=== PATIENT | male | born 1945 | race American Indian/Alaskan Native ===

== ENCOUNTER 2021-06-08 16:55 | Emergency (ER) | payer SELFPAY ==
--- NOTE | 2021-06-08 17:14 | Event Note ---
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 Further treatment and workup at subsequent clinical providers discretion. Patient/guardian urged not to elope from the ED as their condition may be serious if not clinically assessed and managed. Initial orders include: XR PAIN CONTROL
[2021-06-08 17:38] LABS: Hematocrit 41.5 % (35.5-45.6); Hemoglobin 13.5 gm/dl (11.8-15.2); Mean Corpuscular HGB Conc 33 % (32-34); Mean Corpuscular Volume 75 fl (84-94); Platelet Count 196 K/mm3 (140-440); Red Blood Count 5.53 M/mm3 (3.65-5.03)
[2021-06-08] MEDS ORDERED: ONDANSETRON 4 MG/2 ML INJ IV ONE (17:51)
[2021-06-08] MEDS ORDERED: KETOROLAC 30 MG/1 ML INJ IV ONE (17:51)
[2021-06-08] MEDS ORDERED: fentaNYL 100 MCG/2 ML INJ IV ONE (17:52)
--- NOTE | 2021-06-08 17:57 | Emergency Department Report ---
ED Fall HPI - General Chief Complaint: Chest Pain Stated Complaint: CHEST/ARM PAIN Time Seen by Provider: 06/08/21 17:12 Source: patient Mode of arrival: Ambulatory Limitations: No Limitations - History of Present Illness Initial Comments: 76-year-old male with no significant past medical history presents to the hospital after fall off a 6 foot ladder. Patient was cleaning gutters. He sustained injury with deformity to the left wrist. Pain to left wrist is severe and worse with movement and palpation. Improved with rest he is right-hand dominant.. Denies head injury or LOC. He developed left-sided chest pain after the fall which he describes as sharp but not reproducible with palpation. Patient denies headache, neck pain, shortness of breath, abdominal pain and was able to ambulate in the department. He did feel lightheaded and some mild nausea after arrival patient. Patient is noted to be bradycardic. He denies taking any medications currently - Related Data Previous Rx's Medication Instructions Recorded Last Taken Type HYDROcodone/APAP 5-325 [[place] 1 each PO Q4HR PRN #10 tablet 06/08/21 Unknown Rx 5/325] Ibuprofen [Motrin] 800 mg PO Q8HR PRN #20 tablet 06/08/21 Unknown Rx Allergies Allergy/AdvReac Type Severity Reaction Status Date / Time No Known Allergies Allergy Verified 06/08/21 17:02 ED Review of Systems ROS: Stated complaint: CHEST/ARM PAIN Other details as noted in HPI Comment: All other systems reviewed and negative ED Past Medical Hx - Past Medical History Previous Medical History?: No - Surgical History Past Surgical History?: No - Medications Home Medications: Home Medications Medication Instructions Recorded Confirmed Last Taken Type HYDROcodone/APAP 5-325 [[place] 1 each PO Q4HR PRN #10 tablet 06/08/21 Unknown Rx 5/325] Ibuprofen [Motrin] 800 mg PO Q8HR PRN #20 tablet 06/08/21 Unknown Rx ED Physical Exam - General Limitations: No Limitations - Other Other exam information: General: No acute distress Head: Atraumatic Eyes: normal appearance ENT: Moist mucous membranes Neck: Normal appearance, no midline tenderness Chest: Clear to auscultation bilaterally, no tenderness to left rib CV: Regular rate and rhythm Abdomen: Soft, normal bowel sounds, nontender, nondistended, no rebound or guarding Back: Normal inspection, no hematoma, no midline tenderness, muscular tenderness Extremity: Deformity to left wrist, 2+ radial pulse. Sensation to fingers intact. Minimal movement secondary to pain Neuro: Alert O x 3, no facial asymmetry, speech clear, no gross motor sensory deficit Psych: Appropriate behavior Skin: No rash ED Course Vital Signs 06/08/21 06/08/21 06/08/21 17:04 17:46 18:01 Temperature 97.8 F Pulse Rate 51 L 51 L 48 L Pulse Rate [ Intra-Procedure ] Pulse Rate [ Post-Procedure] Pulse Rate [Pre -Procedure] Respiratory 16 12 19 Rate Respiratory Rate [Intra- Procedure] Respiratory Rate [Post- Procedure] Respiratory Rate [Pre- Procedure] Blood Pressure 111/60 Blood Pressure [Intra- Procedure] Blood Pressure 115/51 [Left] Blood Pressure [Post-Procedure ] Blood Pressure [Pre-Procedure] O2 Sat by Pulse 97 98 98 Oximetry O2 Sat by Pulse Oximetry [ Intra-Procedure ] O2 Sat by Pulse Oximetry [Post -Procedure] O2 Sat by Pulse Oximetry [Pre- Procedure] 06/08/21 06/08/21 06/08/21 18:31 19:01 19:31 Temperature Pulse Rate 48 L 50 L 74 Pulse Rate [ Intra-Procedure ] Pulse Rate [ Post-Procedure] Pulse Rate [Pre -Procedure] Respiratory 13 12 18 Rate Respiratory Rate [Intra- Procedure] Respiratory Rate [Post- Procedure] Respiratory Rate [Pre- Procedure] Blood Pressure 117/66 115/73 Blood Pressure [Intra- Procedure] Blood Pressure [Left] Blood Pressure [Post-Procedure ] Blood Pressure [Pre-Procedure] O2 Sat by Pulse 100 98 98 Oximetry O2 Sat by Pulse Oximetry [ Intra-Procedure ] O2 Sat by Pulse Oximetry [Post -Procedure] O2 Sat by Pulse Oximetry [Pre- Procedure] 06/08/21 06/08/21 06/08/21 19:35 20:01 20:38 Temperature 98.5 F Pulse Rate 61 79 Pulse Rate [ 81 Intra-Procedure ] Pulse Rate [ 90 Post-Procedure] Pulse Rate [Pre 58 L -Procedure] Respiratory 17 11 L Rate Respiratory 12 Rate [Intra- Procedure] Respiratory 12 Rate [Post- Procedure] Respiratory 22 Rate [Pre- Procedure] Blood Pressure 125/77 Blood Pressure 171/108 [Intra- Procedure] Blood Pressure 130/83 [Left] Blood Pressure 187/106 [Post-Procedure ] Blood Pressure 143/80 [Pre-Procedure] O2 Sat by Pulse 99 98 Oximetry O2 Sat by Pulse 97 Oximetry [ Intra-Procedure ] O2 Sat by Pulse 100 Oximetry [Post -Procedure] O2 Sat by Pulse 100 Oximetry [Pre- Procedure] - Consultations Consultation #1: 06/08/[address] Haywood including pre and post reduction x-ray review. Outpatient follow-up advised - Moderate Sedation Indications: fracture/dislocation redu ASA Class: III Mallampati Airway Score: 1 Time of Last PO Intake: 16:45 Preparation: mercantile reporter applied, pulse oximeter, capnometry used, supplemental O2 applied, suction/airway equipment at bedside, IV secured Ketamine: IV Ketamine Dose: 82 IV Propofol Dose (mgs): 40 Complications: none Interventions: oxygen applied Patient Tolerated Procedure: well Additional Comments: procedure start time 20:38 procedure stop time 20:48 - Orthopedic Joint Reduction Joint #1 Consent Obtained: written consent Time Out Performed: Yes Side: left Joint Reduction Location: wrist Analgesia: moderate sedation Technique Used: direct manipulation, other (finger traps) Post-Reduction Neuro Exam: intact Post-Reduction Vascular Exam: intact - Orthopedic Splinting/Casting Injury #1 Side: left Upper Extremity Injury Location: wrist Upper Extremity Immobilizer: sugartong splint ED Medical Decision Making - Lab Data Result diagrams: 06/08/21 17:24 06/08/21 17:24 Lab Results 06/08/21 06/08/21 06/08/21 Range/Units 17:24 17:24 18:07 WBC 7.0 (4.5-11.0) K/mm3 RBC 5.53 H (3.65-5.03) M/mm3 Hgb 13.5 (11.8-15.2) gm/dl Hct 41.5 (35.5-45.6) % MCV 75 L (84-94) fl MCH 25 L (28-32) pg MCHC 33 (32-34) % RDW 16.0 H (13.2-15.2) % Plt Count 196 (140-440) K/mm3 Sodium 136 L (137-145) mmol/L Potassium 3.9 (3.6-5.0) mmol/L Chloride 104.1 (98-107) mmol/L Carbon Dioxide 19 L (22-30) mmol/L Anion Gap 17 mmol/L BUN 9 (9-20) mg/dL Creatinine 1.0 (0.8-1.3) mg/dL Estimated GFR > 60 ml/min BUN/Creatinine Ratio 9 % Glucose 118 H (75-100) mg/dL Calcium 9.0 (8.4-10.2) mg/dL Total Bilirubin 0.30 (0.1-1.2) mg/dL AST 26 (5-40) units/L ALT 22 (7-56) units/L Alkaline Phosphatase 74 (35-129) units/L Troponin T < 0.010 (0.00-0.029) ng/mL Total Protein 6.7 (6.3-8.2) g/dL Albumin 3.7 L (3.9-5) g/dL Albumin/Globulin Ratio 1.2 % TSH 1.920 (0.270-4.200) mlU/mL Free T4 1.04 (0.76-1.46) ng/dL - EKG Data -: EKG Interpreted by Sc EKG shows normal: sinus rhythm, ST-T waves (No STEMI) Rate: bradycardia (52) - Radiology Data Radiology results: report reviewed CT CHEST, ABDOMEN, AND PELVIS WITH IV CONTRAST INDICATION: Chest and abdominal pain following injury TECHNIQUE: Axial CT images were obtained through the chest, abdomen, and pelvis without contrast. All CT scans at this location are performed using CT dose reduction for ALARA by means of automated exposure control. COMPARISON: None available. FINDINGS: HEART: No significant abnormality. THORACIC AORTA: No significant abnormality. MEDIASTINUM and SLICK: No significant abnormality. LUNGS: Mild bibasilar airspace opacity probably related to atelectasis. PLEURA: No significant pleural effusion. No pneumothorax. ADDITIONAL CHEST FINDINGS: None. LIVER: No significant abnormality. GALLBLADDER: No significant abnormality. BILE DUCTS: No significant abnormality. PANCREAS: No significant abnormality. SPLEEN: No significant abnormality. ADRENALS: No significant abnormality. RIGHT KIDNEY and URETER: No significant abnormality. LEFT KIDNEY and URETER: No significant abnormality. STOMACH and SMALL BOWEL: No significant abnormality. COLON: Severe sigmoid diverticulosis. APPENDIX: No significant abnormality. PERITONEUM: No free fluid. No free air. No fluid collection. LYMPH NODES: No significant adenopathy. AORTA and ARTERIES: No significant abnormality. IVC and VEINS: No significant abnormality. URINARY BLADDER: No significant abnormality. REPRODUCTIVE ORGANS: Prostate enlargement measuring 6 cm in diameter. ADDITIONAL FINDINGS: None. SKELETAL SYSTEM: Thoracolumbar degenerative changes. Comminuted fracture of the left wrist incidentally noted. IMPRESSION: 1. No acute intrathoracic or intra- abdominal injury. Bibasilar opacities may represent atelectasis. 2. Incidental note is made of comminuted left wrist fracture. Other incidental findings as noted above. - Medical Decision Making CT scanning obtained given height of fall and patient has possible distracting injury to left wrist. Patient having asymptomatic bradycardic with normal TSH no signs of hemorrhage. No signs of hypotension. Patient is asymptomatic regarding bradycardia. Only identifiable imaging after ED work-up with a left comminuted left wrist fracture. Patient received conscious sedation for fracture reduction and splinting. Patient at baseline at time of disposition. Pre and post reduction films reviewed. Patient neurovascularly intact. Pre and post reduction films evaluated by Dr. Haywood and deemed acceptable. Patient placed in a sling to follow-up with orthopedics as outpatient Critical Care Time: No Critical care attestation.: If time is entered above; I have spent that time in minutes in the direct care of this critically ill patient, excluding procedure time. ED Disposition Clinical Impression: Fracture of left wrist, Fall Disposition: HOME / SELF CARE / HOMELESS Is pt being admited?: No Does the pt Need Aspirin: No Condition: Stable Instructions: Wrist Fracture Treated With Immobilization, Wyrw-or-Ifls, Moderate Conscious Sedation, Adult, Care After Additional Instructions: Take the medication as prescribed. Follow-up with your orthopedic doctor or the orthopedic doctor provided. Return if symptoms worsen as indicated by your discharge instructions. Prescriptions: Ibuprofen [Motrin] 800 mg PO Q8HR PRN #20 tablet PRN Reason: Pain , Severe (7-10) HYDROcodone/APAP 5-325 [[place] 5/325] 1 each PO Q4HR PRN #10 tablet PRN Reason: Pain Referrals: KARLY HAYWOOD MD [Staff Physician] - 3-5 Days Time of Disposition: 22:07
[2021-06-08 18:04] LABS: Alanine Aminotransferase 22 units/L (7-56); Albumin 3.7 g/dL (3.9-5); BUN/Creatinine Ratio 9; Blood Urea Nitrogen 9 mg/dL (9-20); Hemolysis Index 10
--- NOTE | 2021-06-08 18:53 | XRay Report ---
Left wrist 2 views INDICATION: Fall FINDINGS: Comminuted displaced intra-articular fracture the distal radius with dorsal angulation. Car pal bones show degenerative change and not well visualized due to patient positioning. Distal ulna vi sualized appears intact. Postreduction films recommended. Signer Name: Yaron Macias MD Signed: 06/08/2021 6:48 PM Workstation Name: [id number]
[2021-06-08 18:56] LABS: Free T4 (Free Thyroxine) 1.04 ng/dL (0.76-1.46)
[2021-06-08] MEDS ORDERED: KETAMINE 500 MG/5 ML VIAL MDV IV ONE (19:43)
[2021-06-08] MEDS ORDERED: propofoL 200 MG/20 ML VIAL IV ONE ×2 (19:43→20:43)
--- NOTE | 2021-06-08 19:53 | Cat Scan Report ---
CT CHEST, ABDOMEN, AND PELVIS WITH IV CONTRAST INDICATION: Chest and abdominal pain following injury TECHNIQUE: Axial CT images were obtained through the chest, abdomen, and pelvis without contrast. All CT scans a t this location are performed using CT dose reduction for ALARA by means of automated exposure contro l. COMPARISON: None available. FINDINGS: HEART: No significant abnormality. THORACIC AORTA: No significant abnormality. MEDIASTINUM and SLICK: No significant abnormality. LUNGS: Mild bibasilar airspace opacity probably related to atelectasis. PLEURA: No significant pleural effusion. No pneumothorax. ADDITIONAL CHEST FINDINGS: None. LIVER: No significant abnormality. GALLBLADDER: No significant abnormality. BILE DUCTS: No significant abnormality. PANCREAS: No significant abnormality. SPLEEN: No significant abnormality. ADRENALS: No significant abnormality. RIGHT KIDNEY and URETER: No significant abnormality. LEFT KIDNEY and URETER: No significant abnormality. STOMACH and SMALL BOWEL: No significant abnormality. COLON: Severe sigmoid diverticulosis. APPENDIX: No significant abnormality. PERITONEUM: No free fluid. No free air. No fluid collection. LYMPH NODES: No significant adenopathy. AORTA and ARTERIES: No significant abnormality. IVC and VEINS: No significant abnormality. URINARY BLADDER: No significant abnormality. REPRODUCTIVE ORGANS: Prostate enlargement measuring 6 cm in diameter. ADDITIONAL FINDINGS: None. SKELETAL SYSTEM: Thoracolumbar degenerative changes. Comminuted fracture of the left wrist incidental ly noted. IMPRESSION: 1. No acute intrathoracic or intra-abdominal injury. Bibasilar opacities may represent atelectasis. 2. Incidental note is made of comminuted left wrist fracture. Other incidental findings as noted matthew [email or web address] Signer Name: Maverick Wagner MD Signed: 06/08/2021 7:49 PM Workstation Name: [id number]
--- NOTE | 2021-06-08 19:55 | Cat Scan Report ---
CT CERVICAL SPINE WITHOUT CONTRAST INDICATION: fall off 6ft ladder. Neck pain TECHNIQUE: Axial CT images of the spine were obtained. Sagittal and coronal reformatted images were produced. Al l CT scans at this location are performed using CT dose reduction for ALARA by means of automated exp osure control. COMPARISON: None available. FINDINGS: ACUTE FRACTURE(S) OR SUBLUXATION: None. SPINAL DEGENERATIVE CHANGES: There is mild degenerative disc disease throughout the cervical spine as well as mild DJD in the atlantodental articulation. PARASPINAL SOFT TISSUES: No soft tissue swelling or other acute abnormalities. ADDITIONAL FINDINGS: No significant additional findings. IMPRESSION: 1. No acute fracture or subluxation in the spine in neutral position. Signer Name: Justin Prasad MD Signed: 06/08/2021 7:51 PM Workstation Name: [id number]
--- NOTE | 2021-06-08 21:32 | XRay Report ---
Left wrist 2 views INDICATION: Postreduction COMPARISON: June 08 earlier today. FINDINGS: Comminuted displaced fracture distal radius. Extension into the radiocarpal joint and dista l radioulnar joint. Degenerative change and base of the thumb. Alignment appears improved. Signer Name: Yaron Macias MD Signed: 06/08/2021 9:28 PM Workstation Name: [id number]
[2021-06-08 22:36] VITALS: BP 142/66
--- NOTE | 2021-06-14 14:41 | Electrocardiograph Report ---
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
--- NOTE | 2021-06-14 14:41 | Electrocardiograph Report ---
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
== END 2021-06-08 23:02 | disposition home or self-care (01) ==
LOC: ED 16:55
DX: S52.502A Unspecified fracture of the lower end of left radius, initial encounter for closed fracture (principal); R07.9 Chest pain, unspecified; R10.9 Unspecified abdominal pain; W11.XXXA Fall on and from ladder, initial encounter; Y93.89 Activity, other specified; Y92.89 Other specified places as the place of occurrence of the external cause; Y99.8 Other external cause status
CPT/HCPCS: 25605; 36415; 71260; 72125; 73100; 74177; 80053; 84439; 84443; 84484; 85027; 93005; 96374; 96375; 99284; J1885; J2405; J2704; J3010; Q9967

== ENCOUNTER 2021-06-19 12:13 | Emergency (ER) | payer SELFPAY ==
--- NOTE | 2021-06-19 14:29 | Emergency Department Report ---
ED Extremity Problem HPI - General Chief complaint: Extremity Problem,Nontraumatic Stated complaint: LT ARM PAIN Time Seen by Provider: 06/19/21 13:16 Source: patient Mode of arrival: Ambulatory Limitations: No Limitations - History of Present Illness Initial comments: 76 male presents to the ER today with complaints of left wrist pain. Patient was seen here on June 08 after a fall from a height. Patient had a community left wrist fracture which required conscious sedation for reduction. Patient was placed in a sugar tong splint and sling. aerotriangulation specialist, Dr. Haywood was consulted, it was required for patient to follow-up. Patient presents today stating that he was not aware that he was supposed to follow-up with senior loss control specialist. He states that he is here today because he is out of his pain meds, he ran out 2 days ago and is having pain in his left wrist. He has some swelling to his fingers and hands, but he states that this is no worse since was placed in the plantar left the hospital. He reports some tingling to his fingers but otherwise no other symptoms. MD Complaint: joint swelling, joint paint -: days(s) (06/08/21) - Related Data Previous Rx's Medication Instructions Recorded Last Taken Type HYDROcodone/APAP 5-325 [[place] 1 each PO Q4HR PRN #10 tablet 06/19/21 Unknown Rx 5-325 mg TAB] Ibuprofen [Motrin 800 MG tab] 800 mg PO Q8HR PRN #20 tablet 06/19/21 Unknown Rx Allergies Allergy/AdvReac Type Severity Reaction Status Date / Time No Known Allergies Allergy Verified 06/08/21 17:02 ED Review of Systems ROS: Stated complaint: LT ARM PAIN Other details as noted in HPI Comment: All other systems reviewed and negative Constitutional: denies: chills, fever Eyes: denies: eye pain, eye discharge, vision change ENT: denies: ear pain, throat pain Respiratory: denies: cough, shortness of breath, SOB with exertion, SOB at rest, wheezing Cardiovascular: denies: chest pain, palpitations, edema, syncope, paroxysmal nocturnal dyspnea Gastrointestinal: denies: abdominal pain, nausea, diarrhea, constipation, hematemesis, hematochezia Genitourinary: denies: urgency, dysuria, frequency, hematuria, discharge, testicular pain, testicular mass Musculoskeletal: joint swelling, arthralgia. denies: back pain Skin: denies: rash, lesions Neurological: denies: headache, weakness, paresthesias, confusion, abnormal gait, vertigo Psychiatric: denies: anxiety, depression, homicidal thoughts Hematological/Lymphatic: denies: easy bleeding, easy bruising, swollen glands ED Past Medical Hx - Past Medical History Previous Medical History?: Yes Hx Hypertension: Yes Hx Heart Attack/AMI: Yes - Medications Home Medications: Home Medications Medication Instructions Recorded Confirmed Last Taken Type HYDROcodone/APAP 5-325 [[place] 1 each PO Q4HR PRN #10 tablet 06/19/21 Unknown Rx 5-325 mg TAB] Ibuprofen [Motrin 800 MG tab] 800 mg PO Q8HR PRN #20 tablet 06/19/21 Unknown Rx ED Physical Exam - General Limitations: No Limitations General appearance: alert, in no apparent distress - Head Head exam: Present: atraumatic, normocephalic, normal inspection - Eye Eye exam: Present: normal appearance, PERRL, EOMI Pupils: Present: normal accommodation - Neck Neck exam: Present: normal inspection, full ROM - Respiratory Respiratory exam: Present: normal lung sounds bilaterally. Absent: respiratory distress, wheezes, rales, rhonchi - Cardiovascular Cardiovascular Exam: Present: regular rate, normal rhythm, normal heart sounds - Extremities Exam Extremities exam: Present: normal capillary refill, other (Sugar tong splint noted to the left forearm/wrist and arm is up and swelling. Patient does have some mild soft swelling to his hand and fingers with good there is no skin disco loration, cap refills are normal, sensation is intact, and he is able to move his fingers well.) - Neurological Exam Neurological exam: Present: alert, oriented X3, CN II-XII intact, normal gait - Psychiatric Psychiatric exam: Present: normal affect, normal mood - Skin Skin exam: Present: intact ED Course Vital Signs 06/19/21 12:23 Temperature 98.3 F Pulse Rate 78 Respiratory 20 Rate Blood Pressure 136/82 O2 Sat by Pulse 97 Oximetry ED Medical Decision Making - Medical Decision Making Sugar tong splint noted to left forearm/wrist. Patient does have some mild to moderate soft swelling to his hands and fingers, but there is no skin discoloration, temperature of the hand and fingers are normal, sensation is intact cap refill normal, he is able to make a fist and move his finger. No evidence of compartment syndrome. Informed patient that he needs to follow up with the [facility] this week. He will get refill on pain meds following up is most important. Dr Haywood' s information was circled on patient's paperwork and starred and he was made aware that that's who he needs to call for follow up. Patient expressed understanding and agreed with plan. Pt stable for d/c. Critical care attestation.: If time is entered above; I have spent that time in minutes in the direct care of this critically ill patient, excluding procedure time. ED Disposition Clinical Impression: Fracture of left wrist Disposition: HOME / SELF CARE / HOMELESS Is pt being admited?: No Does the pt Need Aspirin: No Condition: Stable Instructions: Cast or Splint Care, Adult, [id number], Closed Reduction for Wrist or Forearm Additional Instructions: It is important that you follow-up with senior loss control specialist, Dr. Haywood listed on your discharge instructions this week. Call to make an appointment. His information is circled on your discharge instructions. Continue to keep your arm in the sling, and had keep it elevated as often as possible. Do not remove the splint or get it wet. Take the pain medication as prescribed. Return to the ER if anything changes or worsens. Prescriptions: Ibuprofen [Motrin 800 MG tab] 800 mg PO Q8HR PRN #20 tablet PRN Reason: Pain , Severe (7-10) HYDROcodone/APAP 5-325 [[place] 5-325 mg TAB] 1 each PO Q4HR PRN #10 tablet PRN Reason: Pain Referrals: KARLY HAYWOOD MD [Staff Physician] - 2-3 Days Time of Disposition: 14:41 Print Language: SPANISH
[2021-06-19 14:56] VITALS: BP 140/80
== END 2021-06-19 15:22 | disposition home or self-care (01) ==
LOC: ED 12:13
DX: S62.102D Fracture of unspecified carpal bone, left wrist, subsequent encounter for fracture with routine healing (principal); I10 Essential (primary) hypertension; X58.XXXD Exposure to other specified factors, subsequent encounter
CPT/HCPCS: 99282